=== PATIENT | female | born 1950 | race Caucasian/White ===

== ENCOUNTER → 2016-06-13 | Outpatient (CLI) | payer MEDICARE, BC ==
[~2016-06-13] MED LIST: ADVIL200 MG PO; ALEVE220 MG PO; ASPIRIN EC81 MG PO; BAYER BACK & B1 EACH PO; BIOTIN2500 MCG PO; CARAFATE1 GM PO; COLACE100 MG PO; EXCEDRIN MIGRA1 EACH PO; FLEXERIL10 MG PO; KEFLEX250 MG PO; KEFLEX500 MG PO; LIPITOR40 MG PO; MACROBID100 MG PO; MILK OF MA400 MG/5 M PO; MIRALAX17 GM PO; MULTI VITAMIN1 EACH PO; MULTI-VITAMIN1 EAC1 PO; NEXIUM20 MG PO; NEXIUM40 MG PO; OMNICEF 300MG300 MG PO; ONDANSETRON ODT4 MG PO; OSCAL500 MG PO; PERCOCET 5-3251 EACH PO; PERI-COLACE TA1 EACH PO; PHENERGAN25 M1 PO; PHENERGAN25 M2 R; PHENERGAN25 MG R; PROBIOTIC1 EAC1 PO; PROBIOTIC1 EACH PO; PROLIA60 MG/ML IM; PROLIA60 MG/ML SUB-Q; TOPAMAX100 M1 PO; TOPAMAX25 MG PO; TOPAMAX50 MG PO; TUMS REGULAR ST1 TAB PO; VALIUM5 MG PO; VITAMIN D1000 UNI1 PO; ZANTAC150 MG PO
== END | disposition disaster alternative care site (69) ==
LOC: GRAD 08:00
DX: G43.C1 Periodic headache syndromes in child or adult, intractable (principal)

== ENCOUNTER 2016-12-12 17:00 | Inpatient (IN) | payer MEDICARE, BC ==
[~2016-12-12] VITALS: Ht 157.5 cm; Wt 46.7 kg
--- NOTE | ~2016-12-12 | DS ---
PATIENT'S NAME: DIAN HARRY [facility] AGE: 66 Y [address] ROOM: [place] [address] LOCATION: [facility] [place] ADMIT DATE: 12/14/2016 Discharge Summary DISCHARGE DATE: 12/16/2016 FAMILY PHYSICIAN: Anna Peñaloza MD ATTENDING PHYSICIAN: Katie Barnes ADDENDUM: We kept Nhung overnight because her pain returned after eating solid food, so she is back to the clear liquids and has just taken it easy walking a lot. Her pain is not resolved completely, but she is feeling better and wants to go home. Will cross our fingers, have her keep doing liquids until she can take solid food better and we will have her follow up with Dr. Ruiz as scheduled. MD VELIA THAPA/alberto /[id number] d: 12/17/16140 t: 12/20/16 1741, DISCHARGE SUMMARY
--- NOTE | ~2016-12-12 | DS ---
PATIENT'S NAME: DIAN HARRY [facility] AGE: 66 Y [address] ROOM: [place] [address] LOCATION: [facility] [place] ADMIT DATE: 12/14/2016 Discharge Summary DISCHARGE DATE: 12/16/2016 FAMILY PHYSICIAN: Anna Peñaloza MD ATTENDING PHYSICIAN: Katie Barnes DISCHARGE DIAGNOSES: 1. Partial small bowel obstruction. 2. Abdominal pain, secondary to partial small bowel obstruction. 3. Hemorrhoids. 4. Chronic gastroparesis. 5. Constipation. PROCEDURES: None. REASON FOR ADMISSION: Pain consistent with previous small bowel obstructions. HISTORY OF PRESENT ILLNESS: It should be noted that the patient has history of multiple admissions such as this and history tells us that if we treat them aggressively upfront she is hospitalized for a shorter period of time with less complications. LABORATORY DATA: Chemistries: Electrolytes were benign with normal kidney function and liver function. White count, hemoglobin, and platelets all normal. Urine was benign. CT scan done on day #3 of her hospitalization showed dilated loops of small bowel without a clear transition point. She had low-grade partial strictures and moderate stool. Abdominal film showed no obstruction, possible rectal mass, and a large volume of fat density within the colon from laxatives likely. HOSPITAL COURSE: Hospital course was one of delayed and then gradual improvement. She continues to have some left-sided abdominal discomfort today, but is up and walking, taking clear liquids without problems. We will advance her diet today and if she tolerates it, we will let her go after supper. DISCHARGE INSTRUCTIONS: Meds will be per nursing med recon form. Diet will be as tolerated. Activity will be walking as much as possible and followup will be with Dr. Ruiz at their regularly scheduled appointment. She had endoscopies scheduled sometime in the near future, but we did not accomplish those during this hospitalization so that followup will remain. This discharge took longer than 30 minutes. PATIENT'S NAME: DIAN HARRY [facility] AGE: 66 Y [address] ROOM: [place] [address] LOCATION: [facility] [place] ADMIT DATE: 12/14/2016 Discharge Summary DISCHARGE DATE: 12/16/2016 FAMILY PHYSICIAN: Anna Peñaloza MD ATTENDING PHYSICIAN: Katie Barnes MD VELIA THAPA/alberto /[id number] d: 12/15/16 2340 t: 12/20/16 1738, DISCHARGE SUMMARY
--- NOTE | ~2016-12-12 | HP ---
PATIENT'S NAME: DIAN HARRY [facility] AGE: 66 Y [address] ROOM: [place] [address] [place] [facility] [place]: 12/12/2016 History & Physical DISCHARGE DATE: FAMILY PHYSICIAN: Anna Peñaloza MD ATTENDING PHYSICIAN: MILLY ECHEVERRIA DATE OF SERVICE: CHIEF COMPLAINT: Left-sided abdominal pain. HISTORY OF PRESENT ILLNESS: The patient has had too numerous to count small bowel obstructions and partial small-bowel obstructions, admissions for same. Her surgical odyssey started when she had a five month that miscarried the vaginal part of a twin . At that time, they did not know she had an intraabdominal which became gangrenous and she had surgery subsequently. This was back in 1971. She has had appendectomy, cholecystectomy, apparently Fuentes fundoplication, and multiple laparoscopies for takedown of adhesions. Reference are made to the copy of her surgical history, which will be included in the chart. Additionally, she is a 2, para 2. She had 2 successful vaginal deliveries after that. She is actually a 6, para 2-0-4-2. PAST MEDICAL HISTORY: Medical illnesses: 1. Migraines. 2. Arteriosclerotic vascular disease. 3. GERD. 4. Cervical disk injury in her low back. MEDICATION LIST: 1. ProAir injection every six months. 2. Nexium 40 mg two times daily. 3. Macrobid 100 mg one in the p.m. 4. Topamax 150 mg each p.m. 5. Topamax 125 mg each a.m. 6. Percocet 5/325 p.r.n. 7. Phenergan 25 mg rectally when needed and orally when needed. 8. Zantac 150 mg she takes one b.i.d. 9. Vitamin D 1000 units q.a.m. She has a list of nonprescription drugs as follows: Flexeril 10 mg q.p.m., PATIENT'S NAME: DIAN HARRY [facility] AGE: 66 Y [address] ROOM: [place] [address] [place] [facility] [place]: 12/12/2016 History & Physical DISCHARGE DATE: FAMILY PHYSICIAN: Anna Peñaloza MD ATTENDING PHYSICIAN: SUMITJUANITOMLILY Hines aspirin 81 mg daily, she apparently takes Lipitor which she has prescription. Takes a probiotic, biotin, calcium, and Centrum. ALLERGIES: MORPHINE, COMPAZINE, PENICILLIN, BACTRIM, AND DEMEROL. MORPHINE CAUSES BREATHING DIFFICULTY AND HIVES, COMPAZINE THE SAME, PENICILLIN CAUSES A RASH, BACTRIM CAUSES HIVES, AND DEMEROL CAUSES VOMITING. FAMILY HISTORY: She is the youngest of three sisters. Older sister has back problem, kidney problems, and mental problems. Middle sister has back problems. Mom at 82 had multiple episodes of colon cancer and had multiple myeloma. Dad of sudden cardiac at age 59. Paternal grandfather in his 80s of prostate cancer and paternal grandmother of old age in her 80s. Maternal grandfather of a CVA in his 70s. Maternal grandmother lived to be 93. SOCIAL HISTORY: She is an ex-smoker for 17 years. She has about a [id number] history. She does not drink alcohol and she is . REVIEW OF SYSTEMS: Negative for fever, chills, or sweats. She has had nausea, vomiting, diarrhea. Once she gets to that phase, she knows she has to come in. She denies dysuria. Has no more skeletal pain than usual. Denies problems with vision, hearing, taste, swallowing. Remainder of her 13-point review of systems is negative. PHYSICAL EXAMINATION: VITAL SIGNS: Pending see nurse's notes. GENERAL: She is up and around and moves okay. HEENT: PERRLA. Dentition is good, worn. No inflammation in the posterior pharynx. NECK: Good carotid pulses without bruits. Thyroid palpably normal size and symmetrical. CHEST: CTA. HEART: Regular rate and rhythm without murmur. ABDOMEN: Belly soft on the right side, she was a bit tense on the left and had pain with deep palpation. It is difficult to tell if there is any HSM or masses because of guarding on that side, but I did not feel liver border on the left. : Not done. RECTAL: Not done. EXTREMITIES: Warm, well perfused. She had good distal pulses. LABORATORY DATA: PATIENT'S NAME: DIAN HARRY [facility] AGE: 66 Y [address] ROOM: [address] [address] [place] [facility] [place]: 12/12/2016 History & Physical DISCHARGE DATE: FAMILY PHYSICIAN: Anna Peñaloza MD ATTENDING PHYSICIAN: MILLY ECHEVERRIA Laboratory is pending. We will have CBCs, CMP, sed rate, CRP, lactate, amylase, and lipase called to me. We will start IV at 1:25 and give her 0.5 IV every 2-3 hours p.r.n. We can double that dose if she has no relief within the first hour. I would say the severity of this illness is mild to moderate, but with her history, we know that if we do not act aggressively at this time, it increases the longevity of the hospitalization and the severity of her illness, and certainly, she has had enough abdominal surgeries to make the repetitive nature of her hospitalizations understandable. This is a woman who survived officers telling her her abdominal pain was in her head when she still had a second intraabdominal back in 1971, and she has survived surgeries too numerous to count since that time. Her endoscopist, Dr. Ruiz, had upper and lower endoscopies planned soon, but I will have him see her while she is in here, and we will go from there. MD VELIA THAPA/alberto /[id number] D: [id number] T: [id number] HISTORY & PHYSICAL
--- NOTE | ~2016-12-12 | CON ---
PATIENT'S NAME: DIAN HARRY [facility] AGE: 66 Y [address] ROOM: [place] [address] LOCATION: [facility] [place] ADMIT DATE: 12/14/2016 Consultation DISCHARGE DATE: 12/16/2016 FAMILY PHYSICIAN: Anna Peñaloza MD ATTENDING PHYSICIAN: Katie Barnes DATE OF CONSULTATION: 12/13/2016 REASON FOR CONSULTATION: Abdominal pain, history of small bowel obstructions. HISTORY OF PRESENT ILLNESS: This is a very pleasant 66-year-old female who unfortunately has had numerous abdominal surgeries resulting in numerous hospitalizations with small bowel obstructions and partial small bowel obstruction. The patient was admitted with acute abdominal bloating as well as abdominal pain that she locates throughout her abdomen. The patient denied any acute nausea or vomiting. She also denies any chest pain, chest pressure, shortness of breath, fever, or chills. She does state that her weight has been stable, though has noticed, over the past few days, that her appetite has decreased. PAST MEDICAL HISTORY: Migraines, arteriosclerotic vascular disease, GERD, cervical disk injury in her low back, and history of multiple small bowel obstructions and partial small bowel obstruction secondary to numerous surgeries. PAST SURGICAL HISTORY: History of intraabdominal resulting in gangrene where surgery was ultimately completed, history of appendectomy, cholecystectomy, Fuentes fundoplication, and multiple laparoscopic for takedown of adhesions. In January 2016, she did undergo an upper endoscopy showing Fuentes fundoplication changes, scattered erythema, and petechial hemorrhages of the gastric body and antrum. Slightly decreased height of the folds in the second portion of the duodenum. All pathology was negative at that time. She also underwent a colonoscopy at that time that did show a polyp that was removed resulting as an adenoma with 5 to 6 mm polyps in the rectum and 8 cm from the anorectal verge. SOCIAL HISTORY: She is an ex-smoker, quit approximately 17 years ago. Denies any alcohol or illicit drug use. FAMILY HISTORY: There is a family history of back problems, kidney problems, as well as psychiatric disorders. The patient's mother from colon cancer as PATIENT'S NAME: DIAN HARRY [facility] AGE: 66 Y [address] ROOM: [place] [id number] LOCATION: [facility] [place] ADMIT DATE: 12/14/2016 Consultation DISCHARGE DATE: 12/16/2016 FAMILY PHYSICIAN: Anna Peñaloza MD ATTENDING PHYSICIAN: Katie Barnes well as multiple myeloma. The patient's father from sudden cardiac at the age of 5959 years old. There is also a family history of prostate cancer and CVA. ALLERGIES: PENICILLINS, COMPAZINE, MORPHINE, BACTRIM, AND DEMEROL. CURRENT MEDICATIONS: Please refer to the medication administration record. REVIEW OF SYSTEMS: An all-point review of systems was completed, all were negative except for those identified in the History of Present Illness. PHYSICAL EXAMINATION: GENERAL: A pleasant 66-year-old female, lying in bed, who appears to be in no acute distress. VITAL SIGNS: Temperature 97.7, pulse of 95, respirations 16, blood pressure 139/72, and oxygen saturation is 98% on room air. SKIN: [place], warm, and dry. No jaundice. HEENT: Head is normocephalic and atraumatic. Pupils equally round and reactive to light. Sclerae are clear, nonicteric. Oral mucosa is pink and moist. NECK: Soft and supple. CARDIOVASCULAR: Regular. Normal S1 and S2. RESPIRATORY: Respirations even and unlabored. Lungs are clear to auscultation. ABDOMEN: Soft and flat. Tender throughout. No rebound, rigidity, or guarding noted. No palpable masses felt as well. MUSCULOSKELETAL: No muscle weakness or atrophy. EXTREMITIES: No edema. NEUROLOGIC: Grossly nonfocal. LABORATORY AND DIAGNOSTIC DATA: White blood cell count of 6.1, hemoglobin of 13.8, hematocrit of 44.2, and platelets of 232. Chemistry panel includes a glucose of 94, BUN 18, creatinine 0.8, sodium 144, potassium of 4.1, chloride of 117, and CO2 of 22. Liver function tests are within normal limits. ESR of 9. Amylase 32 and lipase of 82. CRP less than 0.29. ASSESSMENT AND PLAN: Again, this is a very pleasant 66-year-old female with multiple abdominal surgeries as well as multiple hospital admissions for partial and full bowel obstruction. The patient was admitted with acute abdominal pain as well as abdominal bloating. At this time, we will go forth with CT abdomen and pelvis PATIENT'S NAME: PIERODIAN [facility] AGE: 66 Y [address] ROOM: [place] [address] LOCATION: [facility] [place] ADMIT DATE: 12/14/2016 Consultation DISCHARGE DATE: 12/16/2016 FAMILY PHYSICIAN: Anna Peñaloza MD ATTENDING PHYSICIAN: Katie Barnes to rule out complete obstruction. The patient does state that she had a bowel movement yesterday, though denies any passing of gas at this time. She also currently is denying any nausea and vomiting. Further recommendations to be given status post CT and review with radiologist. Thank you for this consult. JOSE BECKWITH APRN FOR RENEA NOLASCO MD MMF/modl /[id number] d: 12/14/16 1843 t: 12/19/16 1210, CONSULTATION REPORT
[~2016-12-12 17:00] MED LIST changes: -ASPIRIN EC81 MG PO; -CARAFATE1 GM PO; -LIPITOR40 MG PO
[2016-12-12] MEDS ORDERED: LIPITOR40 MG PO (18:51)
[2016-12-12 20:06] LABS: BASOPHIL % 0.7 %; EOSINOPHIL # 0.2 K/uL (0.0-0.5); EOSINOPHIL % 3.3 %; HEMATOCRIT 44.2 % (33.0-46.0); HEMOGLOBIN 13.8 g/dL (10.0-15.0); IMMATURE GRANULOCYTE % 0.2 %; MCHC 31.2 gm/dL (32.0-36.5); MCV 86.5 fl (83.0-98.0); MONOCYTE # 0.4 K/uL (0.0-1.0); MPV 10.4 fl (9.4-12.4); NEUTROPHIL # (ANC) 3.5 K/uL (1.8-7.8); NEUTROPHIL % 56.8 %; NRBC % 0 /100WBC (0-0.00); PLATELET COUNT 232 K/uL (150-450); RBC 5.11 M/uL (3.50-5.50); RDW-CV 16.2 % (11.9-14.6); WBC 6.1 K/uL (4.0-11.0)
[2016-12-12 20:25] LABS: ALBUMIN 3.5 gm/dL (3.5-5.0); ALK PHOS 77 IU/L (33-138); ALT 17 IU/L (12-78); AST 10 IU/L (10-40); BLOOD UREA NITROGEN 18 mg/dL (6-24); CO2 22 mMol/L (22-32); CREATININE 0.8 mg/dL (0.5-1.1); POTASSIUM 4.1 mMol/L (3.7-5.1); SODIUM 144 mMol/L (135-145); TOTAL BILIRUBIN 0.4 mg/dL (0.0-1.5); TOTAL PROTEIN 6.7 g/dL (6.0-8.4)
[2016-12-12 20:27] LABS: ANION GAP 9.1 (10.0-19.0); CHLORIDE 117 mMol/L (96-110)
[2016-12-14 06:38] LABS: BASOPHIL % 0.3 %; EOSINOPHIL # 0.2 K/uL (0.0-0.5); EOSINOPHIL % 2.8 %; HEMATOCRIT 40.7 % (33.0-46.0); IMMATURE GRANULOCYTE % 0.2 %; LYMPHOCYTE # 1.5 K/uL (0.8-4.0); LYMPHOCYTE % 25.1 %; MCH 27.1 pg (27.0-34.0); MCHC 31.9 gm/dL (32.0-36.5); MONOCYTE # 0.4 K/uL (0.0-1.0); MPV 10.8 fl (9.4-12.4); NEUTROPHIL # (ANC) 3.9 K/uL (1.8-7.8); NEUTROPHIL % 65.6 %; NRBC % 0 /100WBC (0-0.00); PLATELET COUNT 238 K/uL (150-450); RBC 4.79 M/uL (3.50-5.50); RDW-CV 15.9 % (11.9-14.6)
[2016-12-14 06:47] LABS: CALCIUM 7.7 mg/dL (8.5-10.5); CO2 20 mMol/L (22-32); CREATININE 0.6 mg/dL (0.5-1.1); POTASSIUM 3.6 mMol/L (3.7-5.1); SODIUM 144 mMol/L (135-145)
[2016-12-14 06:48] LABS: ANION GAP 10.6 (10.0-19.0); BLOOD UREA NITROGEN 7 mg/dL (6-24); CHLORIDE 117 mMol/L (96-110)
[2016-12-15 04:54] LABS: BLOOD UREA NITROGEN 6 mg/dL (6-24); CALCIUM 7.9 mg/dL (8.5-10.5); CO2 22 mMol/L (22-32); CREATININE 0.6 mg/dL (0.5-1.1); SODIUM 145 mMol/L (135-145)
[2016-12-15 05:15] LABS: ANION GAP 9.9 (10.0-19.0); CHLORIDE 117 mMol/L (96-110); POTASSIUM 3.9 mMol/L (3.7-5.1)
[2016-12-18] MEDS ORDERED: CARAFATE1 GM PO (10:54)
[2016-12-20] MEDS ORDERED: ASPIRIN EC81 MG PO (17:13)
== END 2016-12-16 16:05 | disposition disaster alternative care site (69) | DRG 390 ==
LOC: GMSU 17:13
PROVIDERS: Family Medicine; Nurse Practitioner Family; ADMIT Internal Medicine
DX: K56.60 Unspecified intestinal obstruction (principal); K31.84 Gastroparesis; K59.00 Constipation, unspecified; K64.9 Unspecified hemorrhoids; I70.90 Unspecified atherosclerosis; G43.909 Migraine, unspecified, not intractable, without status migrainosus; K21.9 Gastro-esophageal reflux disease without esophagitis; Z87.891 Personal history of nicotine dependence; Z88.0 Allergy status to penicillin; Z88.2 Allergy status to sulfonamides; Z88.8 Allergy status to other drugs, medicaments and biological substances
CPT/HCPCS: C9113; J1170; J2001; J2405; J3010